=== PATIENT | female | born 1940 | race African-American/Black ===

== ENCOUNTER 2017-11-23 06:42 | Day surgery (SDC) | payer MEDICARE, MEDICAID ==
[~2017-11-23] VITALS: Ht 166.4 cm; Wt 105.7 kg
[~2017-11-23 06:42] MED LIST: AMLO1TAB39 PO; AMLO5TAB4 PO; ASPI-1158 PO; ATOR80TA PO; CALC-696 PO; CLOP75TA16 PO; COR3 PO; DOCU-138 PO; DONE10TA11 PO; ESOM40CA PO; FERR-63 PO; FURO-152 PO; GABA-529 PO; HYDR-1348 PO; HYDR-519 PO; ISOS60TA4 PO; LIP40 PO; MEMA10TA2 PO; MEMA1CAP MT; METF500T4 PO; MULT1TAB PO; NITR0.4T49 SL; OLME1TAB11 PO; OMEG-31 PO; POTA20TA12 PO; RANO500T3 PO
[2017-11-23] MEDS ORDERED: IODIXANOL 320MG/ML 100 ML BOTTLE IV ONE (07:58)
[2017-11-23] MEDS ORDERED: FENTANYL CITRATE/PF 50MCG/ML 2ML VIAL ONE (07:58)
[2017-11-23] MEDS ORDERED: MIDAZOLAM HCL 2 MG/2 ML VIAL ONE (07:58)
[2017-11-23] MEDS ORDERED: LIDOCAINE HCL/PF 1% 10 MG/ML 5ML VIAL ONE ×4 (07:59→09:29)
[2017-11-23] MEDS ORDERED: MEMA10TA2 PO (09:03)
[2017-11-23] MEDS ORDERED: MELO-104 PO (09:03)
[2017-11-23] MEDS ORDERED: CALCIUM PO (09:03)
[2017-11-23] MEDS ORDERED: OLME1TAB30 PO (09:03)
[2017-11-23] MEDS ORDERED: GARL400T13 PO (09:03)
[2017-11-23] MEDS ORDERED: TRIBENZOR PO (09:03)
[2017-11-23] MEDS ORDERED: RANI150C12 PO (09:03)
[2017-11-23] MEDS ORDERED: CYAN100096 PO (09:03)
[2017-11-23] MEDS ORDERED: EVOL420W SQ (09:03)
[2017-11-23] MEDS ORDERED: ATROPINE SULFATE 1MG/10ML SYR IV PRN (10:15)
[2017-11-23] MEDS ORDERED: ACETAMINOPHEN 325MG TABLET PO PRN (10:15)
[2017-11-23] MEDS ORDERED: ONDANSETRON HCL 4MG/2ML VIAL IV PRN (10:15)
[2017-11-23] MEDS ORDERED: NICARDIPINE 100MCG/ML 10ML VIAL (CATH LAB) IV ONE (14:41)
[2017-11-23] MEDS ORDERED: NITROGLYCERIN 50MCG/ML 10ML VIAL (CATH LAB) IV ONE (14:41)
== END 2017-11-23 15:15 | disposition home or self-care (01) ==
LOC: CCL 06:42
PROVIDERS: ATTEND Specialist
DX: I25.118 Atherosclerotic heart disease of native coronary artery with other forms of angina pectoris (principal); E78.4 Other hyperlipidemia; I11.0 Hypertensive heart disease with heart failure; I50.22 Chronic systolic (congestive) heart failure; E11.9 Type 2 diabetes mellitus without complications; Z79.4 Long term (current) use of insulin; Z95.1 Presence of aortocoronary bypass graft; Z79.899 Other long term (current) drug therapy; Z85.3 Personal history of malignant neoplasm of breast; Z95.5 Presence of coronary angioplasty implant and graft; I25.5 Ischemic cardiomyopathy; I47.1 Supraventricular tachycardia; I25.2 Old myocardial infarction; Z88.8 Allergy status to other drugs, medicaments and biological substances; Z79.82 Long term (current) use of aspirin
CPT/HCPCS: 82962; 93459; 99152; 99153; C1760; C1769; C1887; C1893; C1894; J1644; J2250; J3010; J3490; Q9967

== ENCOUNTER 2018-03-01 13:15 | Inpatient (IN) | payer MEDICARE, MEDICAID ==
[~2018-03-01] VITALS: Ht 165.1 cm; Wt 106.5 kg
[~2018-03-01 13:15] MED LIST changes: +CALCIUM PO; +CYAN100096 PO; +EVOL420W SQ; +GARL400T13 PO; +MELO-104 PO; -METF500T4 PO; +METF500T6 PO; +OLME1TAB30 PO; +RANI150C12 PO; +TRIBENZOR PO
[2018-03-01 15:00] VITALS: BP 147/71
[2018-03-01] MEDS ORDERED: NITROGLYCERIN 0.4MG TABLET SL SL PRN ×2 (15:00→16:00)
[2018-03-01] MEDS ORDERED: DEXTROSE 50% WATER 50ML SYRINGE IV PRN ×3 (15:00→16:00)
[2018-03-01] MEDS ORDERED: IPRATROPIUM/ALBUTEROL 0.5-3(2.5)MG/3ML NEB HHN PRN ×2 (15:00→16:00)
[2018-03-01] MEDS ORDERED: LOPERAMIDE HCL 2MG CAPSULE PO PRN ×2 (15:00→16:00)
[2018-03-01] MEDS ORDERED: ONDANSETRON HCL 4MG/2ML VIAL IV PRN ×2 (15:00→16:00)
[2018-03-01] MEDS ORDERED: DIPHENOXYLATE/ATROPINE 2.5/0.025MG TABLET PO PRN ×2 (15:00→16:00)
[2018-03-01] MEDS ORDERED: ACETAMINOPHEN 325MG TABLET PO PRN (15:00)
[2018-03-01] MEDS ORDERED: METHYL SALICYLATE/MENTHOL CREAM 85GM TOP PRN (15:00)
[2018-03-01] MEDS ORDERED: IPRATROPIUM/ALBUTEROL 0.5-3(2.5)MG/3ML NEB HHN SCH (16:00)
[2018-03-01] MEDS ORDERED: MEROPENEM 1,000 MG in SODIUM CHLORIDE 0.9% 100 ML IV SCH (17:00)
[2018-03-01] MEDS ORDERED: BLOOD SUGAR DIAGNOSTIC STRIP TEST SCH (17:00)
[2018-03-01] MEDS ORDERED: MEGESTROL ACETATE 400 MG/10 ML UDC PO SCH (17:00)
[2018-03-01] MEDS: INSULIN LISPRO 100 UNITS/ML SUBCUT SCH ×2 (17:00→21:00)
[2018-03-01] MEDS ORDERED: FERROUS SULFATE 325MG TABLET PO SCH (17:00)
[2018-03-01] MEDS: BLOOD SUGAR DIAGNOSTIC STRIP TEST SCH ×2 (17:00→21:37)
[2018-03-01] MEDS ORDERED: INSULIN LISPRO 100 UNITS/ML SUBCUT SCH (17:00)
[2018-03-01] MEDS: ACETAMINOPHEN 500MG TABLET PO SCH ×2 (18:00→18:48)
[2018-03-01] MEDS ORDERED: ACETAMINOPHEN 500MG TABLET PO SCH (18:00)
[2018-03-01] MEDS: FERROUS SULFATE 325MG TABLET PO SCH (18:47)
[2018-03-01] MEDS: MEGESTROL ACETATE 400 MG/10 ML UDC PO SCH (18:47)
[2018-03-01] MEDS: METHYL SALICYLATE/MENTHOL CREAM 85GM TOP SCH (18:53)
[2018-03-01 20:00] VITALS: BP 136/64
[2018-03-01] MEDS: MEROPENEM 1,000 MG in SODIUM CHLORIDE 0.9% 100 ML IV SCH (20:24)
[2018-03-01] MEDS ORDERED: ENOXAPARIN 30MG/0.3ML SYR SUBCUT SCH (21:00)
[2018-03-01] MEDS ORDERED: CARVEDILOL 3.125 MG TABLET PO SCH (21:00)
[2018-03-01] MEDS: GABAPENTIN 100MG CAPSULE PO SCH (21:36)
[2018-03-01] MEDS: CARVEDILOL 3.125 MG TABLET PO SCH (21:37)
[2018-03-01] MEDS: ENOXAPARIN 30MG/0.3ML SYR SUBCUT SCH (21:38)
[2018-03-01] MEDS ORDERED: GABAPENTIN 100MG CAPSULE PO SCH (22:00)
[2018-03-02] MEDS: ACETAMINOPHEN 325MG TABLET PO PRN (00:30)
[2018-03-02] MEDS: MEROPENEM 1,000 MG in SODIUM CHLORIDE 0.9% 100 ML IV SCH ×3 (04:58→19:31)
[2018-03-02] MEDS: METHYL SALICYLATE/MENTHOL CREAM 85GM TOP SCH ×5 (06:00→23:20)
[2018-03-02] MEDS: ACETAMINOPHEN 500MG TABLET PO SCH ×4 (06:45→19:31)
[2018-03-02] MEDS: BLOOD SUGAR DIAGNOSTIC STRIP TEST SCH ×4 (06:47→21:05)
[2018-03-02] MEDS: PANTOPRAZOLE 40MG DR TABLET PO SCH (06:47)
[2018-03-02] MEDS: INSULIN LISPRO 100 UNITS/ML SUBCUT SCH ×4 (06:47→21:00)
[2018-03-02] MEDS: GABAPENTIN 100MG CAPSULE PO SCH ×3 (06:47→21:05)
[2018-03-02] MEDS ORDERED: PANTOPRAZOLE 40MG DR TABLET PO SCH (07:00)
[2018-03-02 08:00] VITALS: BP 149/74
[2018-03-02 08:12] LABS: CHLORIDE 109 mEq/L (98-107)
[2018-03-02 08:14] LABS: HEMATOCRIT 27.7 % (36.0-48.0); MEAN CORPUSCULAR HEMOGLOBIN 28.3 pg (28.0-32.0); MEAN CORPUSCULAR VOLUME 87.2 fL (81.0-99.0); PLATELET 505 x1000/uL (130-400); RED BLOOD CELL COUNT 3.18 mill/uL (4.2-5.4); RED CELL DISTRIBUTION WIDTH 14.6 % (11.6-14.6)
[2018-03-02] MEDS ORDERED: AMLODIPINE 5MG TABLET PO SCH (09:00)
[2018-03-02] MEDS ORDERED: LIDOCAINE 5% PATCH TOP SCH (09:00)
[2018-03-02] MEDS ORDERED: LACTOBACILLUS GG CAPSULE PO SCH (09:00)
[2018-03-02] MEDS ORDERED: DONEPEZIL HCL 10MG TABLET PO SCH (09:00)
[2018-03-02] MEDS: MEGESTROL ACETATE 400 MG/10 ML UDC PO SCH ×2 (09:40→16:45)
[2018-03-02] MEDS: LIDOCAINE 5% PATCH TOP SCH (09:40)
[2018-03-02] MEDS: CARVEDILOL 3.125 MG TABLET PO SCH ×2 (09:41→20:48)
[2018-03-02] MEDS: LACTOBACILLUS GG CAPSULE PO SCH (09:41)
[2018-03-02] MEDS: FERROUS SULFATE 325MG TABLET PO SCH ×2 (09:41→16:45)
[2018-03-02] MEDS: DONEPEZIL HCL 10MG TABLET PO SCH (09:41)
[2018-03-02] MEDS: AMLODIPINE 5MG TABLET PO SCH (09:41)
[2018-03-02] MEDS: ENOXAPARIN 30MG/0.3ML SYR SUBCUT SCH ×2 (09:42→20:48)
[2018-03-02 18:25] LABS: CLARITY URINE CLEAR (CLEAR); COLOR URINE YELLOW (YELLOW); KETONES URINE NEGATIVE (NEGATIVE); LEUKOCYTE ESTERASE URINE NEGATIVE (NEGATIVE); NITRITE URINE NEGATIVE (NEGATIVE); OCCULT BLOOD URINE 2+ (NEGATIVE); PROTEIN URINE NEGATIVE (NEGATIVE); SPECIFIC GRAVITY URINE 1.005 (1.005-1.030); UROBILINOGEN URINE 0.2 E.U./dL (0.2-1.0)
[2018-03-02 20:00] VITALS: BP 136/87
[2018-03-03] MEDS: ACETAMINOPHEN 500MG TABLET PO SCH ×4 (00:29→18:39)
[2018-03-03] MEDS: MEROPENEM 1,000 MG in SODIUM CHLORIDE 0.9% 100 ML IV SCH ×3 (01:26→18:38)
[2018-03-03] MEDS: BLOOD SUGAR DIAGNOSTIC STRIP TEST SCH ×4 (06:24→20:30)
[2018-03-03] MEDS: PANTOPRAZOLE 40MG DR TABLET PO SCH (06:26)
[2018-03-03] MEDS: GABAPENTIN 100MG CAPSULE PO SCH ×3 (06:26→21:18)
[2018-03-03] MEDS: METHYL SALICYLATE/MENTHOL CREAM 85GM TOP SCH ×3 (06:27→18:00)
[2018-03-03] MEDS: INSULIN LISPRO 100 UNITS/ML SUBCUT SCH ×4 (06:49→20:30)
[2018-03-03 07:10] LABS: HEMATOCRIT. 27.6 % (36.0-48.0); HEMOGLOBIN. 8.8 g/dL (12.0-16.0); MEAN CORPUSCULAR HEMOGLOBIN 27.8 pg (28.0-32.0); MEAN PLATELET VOLUME 6.7 fl (7.4-10.4); PLATELET 488 x1000/uL (130-400); RED BLOOD CELL COUNT 3.17 mill/uL (4.2-5.4); RED CELL DISTRIBUTION WIDTH 15.1 % (11.6-14.6)
[2018-03-03 07:24] LABS: CHLORIDE 108 mEq/L (98-107)
[2018-03-03 07:31] LABS: TOTAL IRON BINDING CAPACITY 163 ug/dL (250-450)
[2018-03-03 07:50] VITALS: BP 148/74
[2018-03-03 07:52] LABS: FOLIC ACID (FOLATE) SERUM >20 ng/mL ng/mL (>5.38)
[2018-03-03 08:05] LABS: VITAMIN B12 SERUM >2000 pg/mL pg/mL (211-911)
[2018-03-03] MEDS: MEGESTROL ACETATE 400 MG/10 ML UDC PO SCH ×2 (08:10→16:30)
[2018-03-03] MEDS: LACTOBACILLUS GG CAPSULE PO SCH (08:11)
[2018-03-03] MEDS: DONEPEZIL HCL 10MG TABLET PO SCH (08:11)
[2018-03-03] MEDS: FERROUS SULFATE 325MG TABLET PO SCH ×2 (08:11→16:30)
[2018-03-03] MEDS: ENOXAPARIN 30MG/0.3ML SYR SUBCUT SCH (08:11)
[2018-03-03] MEDS: CARVEDILOL 3.125 MG TABLET PO SCH ×2 (08:12→20:29)
[2018-03-03] MEDS: AMLODIPINE 5MG TABLET PO SCH (08:12)
[2018-03-03] MEDS: LIDOCAINE 5% PATCH TOP SCH (08:13)
[2018-03-03 08:44] LABS: PLATELET ESTIMATE INCREASED
[2018-03-03 09:27] LABS: FERRITIN 649 ng/mL (10-291)
[2018-03-03 20:00] VITALS: BP 146/74
[2018-03-04] MEDS: MEROPENEM 1,000 MG in SODIUM CHLORIDE 0.9% 100 ML IV SCH ×3 (02:02→17:14)
[2018-03-04] MEDS: METHYL SALICYLATE/MENTHOL CREAM 85GM TOP SCH ×4 (06:00→17:47)
[2018-03-04] MEDS: GABAPENTIN 100MG CAPSULE PO SCH ×3 (06:15→22:24)
[2018-03-04] MEDS: ACETAMINOPHEN 500MG TABLET PO SCH ×4 (06:15→17:16)
[2018-03-04] MEDS: BLOOD SUGAR DIAGNOSTIC STRIP TEST SCH ×4 (06:16→21:00)
[2018-03-04] MEDS: INSULIN LISPRO 100 UNITS/ML SUBCUT SCH ×4 (06:16→21:00)
[2018-03-04 08:00] VITALS: BP 150/69
[2018-03-04] MEDS: FAMOTIDINE 20MG TABLET PO SCH ×2 (09:46→22:24)
[2018-03-04] MEDS: FERROUS SULFATE 325MG TABLET PO SCH ×2 (09:46→17:14)
[2018-03-04] MEDS: ENOXAPARIN 40MG/0.4ML SYR SUBCUT SCH (09:46)
[2018-03-04] MEDS: LACTOBACILLUS GG CAPSULE PO SCH (09:46)
[2018-03-04] MEDS: MEGESTROL ACETATE 400 MG/10 ML UDC PO SCH ×2 (09:46→17:14)
[2018-03-04] MEDS: DONEPEZIL HCL 10MG TABLET PO SCH (09:47)
[2018-03-04] MEDS: CARVEDILOL 3.125 MG TABLET PO SCH ×2 (09:47→22:25)
[2018-03-04] MEDS: AMLODIPINE 5MG TABLET PO SCH (09:47)
[2018-03-04] MEDS: LIDOCAINE 5% PATCH TOP SCH (09:48)
[2018-03-04 20:00] VITALS: BP 154/69
[2018-03-05] MEDS: ACETAMINOPHEN 500MG TABLET PO SCH ×4 (00:41→17:32)
[2018-03-05] MEDS: MEROPENEM 1,000 MG in SODIUM CHLORIDE 0.9% 100 ML IV SCH ×3 (01:44→17:32)
[2018-03-05] MEDS: METHYL SALICYLATE/MENTHOL CREAM 85GM TOP SCH ×4 (06:00→17:32)
[2018-03-05] MEDS: GABAPENTIN 100MG CAPSULE PO SCH ×3 (06:22→21:37)
[2018-03-05] MEDS: BLOOD SUGAR DIAGNOSTIC STRIP TEST SCH ×4 (06:23→21:38)
[2018-03-05] MEDS: INSULIN LISPRO 100 UNITS/ML SUBCUT SCH ×4 (06:26→21:00)
[2018-03-05 06:56] LABS: BASOPHILS % 0.1 % (0.0-2.0); EOSINOPHILS % 2.1 % (0.0-5.0); HEMATOCRIT. 27.3 % (36.0-48.0); LYMPHOCYTES % 24.8 % (20.0-50.0); MEAN CORPUSCULAR HEMOGLOBIN 29.2 pg (28.0-32.0); MEAN PLATELET VOLUME 6.5 fl (7.4-10.4); MONOCYTES % 10.1 % (2.0-8.0); NEUTROPHILS % 62.9 % (40.0-76.0); PLATELET 549 x1000/uL (130-400); RED CELL DISTRIBUTION WIDTH 15.3 % (11.6-14.6)
[2018-03-05 07:17] LABS: CHLORIDE 110 mEq/L (98-107)
[2018-03-05 08:00] VITALS: BP 157/73
[2018-03-05] MEDS: MEGESTROL ACETATE 400 MG/10 ML UDC PO SCH ×2 (09:26→16:13)
[2018-03-05] MEDS: ENOXAPARIN 40MG/0.4ML SYR SUBCUT SCH (09:27)
[2018-03-05] MEDS: AMLODIPINE 5MG TABLET PO SCH (09:28)
[2018-03-05] MEDS: FAMOTIDINE 20MG TABLET PO SCH ×2 (09:28→21:37)
[2018-03-05] MEDS: DONEPEZIL HCL 10MG TABLET PO SCH (09:28)
[2018-03-05] MEDS: LACTOBACILLUS GG CAPSULE PO SCH (09:29)
[2018-03-05] MEDS: FERROUS SULFATE 325MG TABLET PO SCH ×2 (09:29→16:13)
[2018-03-05] MEDS: CARVEDILOL 3.125 MG TABLET PO SCH ×2 (09:30→21:38)
[2018-03-05] MEDS: LIDOCAINE 5% PATCH TOP SCH (09:31)
[2018-03-05] MEDS ORDERED: NON FORMULARY PATIENT HOME MED EA XX SCH (12:30)
[2018-03-05 20:00] VITALS: BP 131/70
[2018-03-06] MEDS: MEROPENEM 1,000 MG in SODIUM CHLORIDE 0.9% 100 ML IV SCH ×3 (02:08→17:09)
[2018-03-06] MEDS: METHYL SALICYLATE/MENTHOL CREAM 85GM TOP SCH ×4 (06:00→18:00)
[2018-03-06] MEDS: BLOOD SUGAR DIAGNOSTIC STRIP TEST SCH ×4 (06:01→20:59)
[2018-03-06] MEDS: ACETAMINOPHEN 500MG TABLET PO SCH ×4 (06:01→17:10)
[2018-03-06] MEDS: GABAPENTIN 100MG CAPSULE PO SCH ×3 (06:01→20:59)
[2018-03-06] MEDS: INSULIN LISPRO 100 UNITS/ML SUBCUT SCH ×4 (06:03→21:00)
[2018-03-06 06:45] LABS: BASOPHILS % 0.1 % (0.0-2.0); EOSINOPHILS % 1.9 % (0.0-5.0); HEMATOCRIT. 29.6 % (36.0-48.0); HEMOGLOBIN. 9.5 g/dL (12.0-16.0); LYMPHOCYTES % 28.1 % (20.0-50.0); MEAN CORPUSCULAR HEMOGLOBIN 27.9 pg (28.0-32.0); MEAN CORPUSCULAR VOLUME 87.2 fL (81.0-99.0); MEAN PLATELET VOLUME 6.3 fl (7.4-10.4); MONOCYTES % 9.2 % (2.0-8.0); NEUTROPHILS % 60.7 % (40.0-76.0); PLATELET 622 x1000/uL (130-400); RED BLOOD CELL COUNT 3.39 mill/uL (4.2-5.4)
[2018-03-06 07:42] LABS: CLARITY URINE CLEAR (CLEAR); COLOR URINE YELLOW (YELLOW); KETONES URINE NEGATIVE (NEGATIVE); LEUKOCYTE ESTERASE URINE NEGATIVE (NEGATIVE); NITRITE URINE NEGATIVE (NEGATIVE); OCCULT BLOOD URINE NEGATIVE (NEGATIVE); PH URINE 7.5 (4.5-8.0); PROTEIN URINE NEGATIVE (NEGATIVE); SPECIFIC GRAVITY URINE 1.011 (1.005-1.030); UROBILINOGEN URINE 0.2 E.U./dL (0.2-1.0)
[2018-03-06 07:50] VITALS: BP 142/65
[2018-03-06 07:52] LABS: CHLORIDE 110 mEq/L (98-107)
[2018-03-06] MEDS: MEGESTROL ACETATE 400 MG/10 ML UDC PO SCH ×2 (09:13→16:19)
[2018-03-06] MEDS: ENOXAPARIN 40MG/0.4ML SYR SUBCUT SCH (09:14)
[2018-03-06] MEDS: LACTOBACILLUS GG CAPSULE PO SCH (09:16)
[2018-03-06] MEDS: LIDOCAINE 5% PATCH TOP SCH (09:16)
[2018-03-06] MEDS: FERROUS SULFATE 325MG TABLET PO SCH ×2 (09:16→16:19)
[2018-03-06] MEDS: FAMOTIDINE 20MG TABLET PO SCH ×2 (09:17→20:59)
[2018-03-06] MEDS: AMLODIPINE 5MG TABLET PO SCH (09:17)
[2018-03-06] MEDS: DONEPEZIL HCL 10MG TABLET PO SCH (09:17)
[2018-03-06] MEDS: CARVEDILOL 3.125 MG TABLET PO SCH ×2 (09:18→20:59)
[2018-03-06] MEDS: ACETAMINOPHEN 325MG TABLET PO PRN (10:23)
[2018-03-06 20:00] VITALS: BP 143/62
[2018-03-07] MEDS: MEROPENEM 1,000 MG in SODIUM CHLORIDE 0.9% 100 ML IV SCH ×3 (02:06→17:07)
[2018-03-07] MEDS: ACETAMINOPHEN 500MG TABLET PO SCH ×4 (05:47→17:07)
[2018-03-07] MEDS: GABAPENTIN 100MG CAPSULE PO SCH ×3 (05:47→21:20)
[2018-03-07] MEDS: BLOOD SUGAR DIAGNOSTIC STRIP TEST SCH ×4 (05:49→21:20)
[2018-03-07] MEDS: METHYL SALICYLATE/MENTHOL CREAM 85GM TOP SCH ×4 (05:49→17:26)
[2018-03-07] MEDS: INSULIN LISPRO 100 UNITS/ML SUBCUT SCH ×4 (05:49→21:00)
[2018-03-07 07:11] LABS: CHLORIDE 111 mEq/L (98-107)
[2018-03-07 07:26] LABS: BASOPHILS % 0.2 % (0.0-2.0); EOSINOPHILS % 1.6 % (0.0-5.0); HEMATOCRIT. 27.3 % (36.0-48.0); HEMOGLOBIN. 8.9 g/dL (12.0-16.0); LYMPHOCYTES % 26.1 % (20.0-50.0); MEAN CORPUSCULAR HEMOGLOBIN 28.8 pg (28.0-32.0); MEAN CORPUSCULAR VOLUME 88.1 fL (81.0-99.0); MEAN PLATELET VOLUME 6.5 fl (7.4-10.4); MONOCYTES % 12.4 % (2.0-8.0); NEUTROPHILS % 59.7 % (40.0-76.0); PLATELET 601 x1000/uL (130-400); RED CELL DISTRIBUTION WIDTH 15.2 % (11.6-14.6)
[2018-03-07 07:45] VITALS: BP 150/72
[2018-03-07] MEDS: LIDOCAINE 5% PATCH TOP SCH (09:00)
[2018-03-07] MEDS: ENOXAPARIN 40MG/0.4ML SYR SUBCUT SCH (09:05)
[2018-03-07] MEDS: CARVEDILOL 3.125 MG TABLET PO SCH ×2 (09:05→21:20)
[2018-03-07] MEDS: LACTOBACILLUS GG CAPSULE PO SCH (09:05)
[2018-03-07] MEDS: FAMOTIDINE 20MG TABLET PO SCH ×2 (09:05→21:20)
[2018-03-07] MEDS: FERROUS SULFATE 325MG TABLET PO SCH ×2 (09:05→17:07)
[2018-03-07] MEDS: DONEPEZIL HCL 10MG TABLET PO SCH (09:05)
[2018-03-07] MEDS: AMLODIPINE 5MG TABLET PO SCH (09:05)
[2018-03-07] MEDS: MEGESTROL ACETATE 400 MG/10 ML UDC PO SCH ×2 (09:05→17:07)
[2018-03-07 20:00] VITALS: BP 151/69
[2018-03-08] MEDS: MEROPENEM 1,000 MG in SODIUM CHLORIDE 0.9% 100 ML IV SCH ×3 (01:31→17:23)
[2018-03-08] MEDS: GABAPENTIN 100MG CAPSULE PO SCH ×3 (05:58→21:49)
[2018-03-08] MEDS: ACETAMINOPHEN 500MG TABLET PO SCH ×4 (05:58→20:53)
[2018-03-08] MEDS: METHYL SALICYLATE/MENTHOL CREAM 85GM TOP SCH ×4 (05:58→17:44)
[2018-03-08] MEDS: BLOOD SUGAR DIAGNOSTIC STRIP TEST SCH ×4 (05:58→20:58)
[2018-03-08] MEDS: INSULIN LISPRO 100 UNITS/ML SUBCUT SCH ×4 (06:03→20:58)
[2018-03-08 07:40] VITALS: BP 152/67
[2018-03-08] MEDS: FERROUS SULFATE 325MG TABLET PO SCH ×2 (08:22→17:23)
[2018-03-08] MEDS: ENOXAPARIN 40MG/0.4ML SYR SUBCUT SCH (08:22)
[2018-03-08] MEDS: LACTOBACILLUS GG CAPSULE PO SCH (08:22)
[2018-03-08] MEDS: FAMOTIDINE 20MG TABLET PO SCH ×2 (08:22→21:52)
[2018-03-08] MEDS: DONEPEZIL HCL 10MG TABLET PO SCH (08:22)
[2018-03-08] MEDS: CARVEDILOL 3.125 MG TABLET PO SCH ×2 (08:23→21:51)
[2018-03-08] MEDS: LIDOCAINE 5% PATCH TOP SCH (08:23)
[2018-03-08] MEDS: AMLODIPINE 5MG TABLET PO SCH (08:23)
[2018-03-08] MEDS: MEGESTROL ACETATE 400 MG/10 ML UDC PO SCH ×2 (08:24→17:23)
[2018-03-08 20:00] VITALS: BP 143/52
[2018-03-09] MEDS: ACETAMINOPHEN 500MG TABLET PO SCH ×4 (02:11→21:23)
[2018-03-09] MEDS: GABAPENTIN 100MG CAPSULE PO SCH ×3 (05:53→21:22)
[2018-03-09] MEDS: METHYL SALICYLATE/MENTHOL CREAM 85GM TOP SCH ×4 (05:53→17:27)
[2018-03-09] MEDS: INSULIN LISPRO 100 UNITS/ML SUBCUT SCH ×4 (05:54→21:00)
[2018-03-09] MEDS: BLOOD SUGAR DIAGNOSTIC STRIP TEST SCH ×4 (05:54→21:24)
[2018-03-09 07:25] LABS: BASOPHILS % 0.4 % (0.0-2.0); EOSINOPHILS % 1.4 % (0.0-5.0); HEMATOCRIT. 28.9 % (36.0-48.0); HEMOGLOBIN. 9.3 g/dL (12.0-16.0); LYMPHOCYTES % 26.5 % (20.0-50.0); MEAN CORPUSCULAR HEMOGLOBIN 28.7 pg (28.0-32.0); MEAN CORPUSCULAR VOLUME 89.2 fL (81.0-99.0); MONOCYTES % 9.1 % (2.0-8.0); NEUTROPHILS % 62.6 % (40.0-76.0); PLATELET 678 x1000/uL (130-400); RED BLOOD CELL COUNT 3.24 mill/uL (4.2-5.4); RED CELL DISTRIBUTION WIDTH 15.8 % (11.6-14.6)
[2018-03-09 07:30] VITALS: BP 149/65
[2018-03-09 08:01] LABS: CHLORIDE 113 mEq/L (98-107)
[2018-03-09 08:14] LABS: CREATINE KINASE 42 IU/L (26-192)
[2018-03-09] MEDS: ENOXAPARIN 40MG/0.4ML SYR SUBCUT SCH (08:21)
[2018-03-09] MEDS: LIDOCAINE 5% PATCH TOP SCH (08:22)
[2018-03-09] MEDS: MEGESTROL ACETATE 400 MG/10 ML UDC PO SCH ×2 (08:23→16:36)
[2018-03-09] MEDS: FERROUS SULFATE 325MG TABLET PO SCH ×2 (08:24→16:36)
[2018-03-09] MEDS: LACTOBACILLUS GG CAPSULE PO SCH (08:24)
[2018-03-09] MEDS: DONEPEZIL HCL 10MG TABLET PO SCH (08:25)
[2018-03-09] MEDS: AMLODIPINE 5MG TABLET PO SCH (08:25)
[2018-03-09] MEDS: CARVEDILOL 3.125 MG TABLET PO SCH ×2 (08:25→21:22)
[2018-03-09] MEDS: FAMOTIDINE 20MG TABLET PO SCH ×2 (08:26→21:22)
[2018-03-09 17:06] LABS: 25-HYDROXY VITAMIN D3 25 ng/mL (.)
[2018-03-09 20:00] VITALS: BP 156/53
[2018-03-10] MEDS: ACETAMINOPHEN 500MG TABLET PO SCH ×2 (01:29→08:43)
[2018-03-10] MEDS: METHYL SALICYLATE/MENTHOL CREAM 85GM TOP SCH ×3 (06:00→11:08)
[2018-03-10] MEDS: BLOOD SUGAR DIAGNOSTIC STRIP TEST SCH ×2 (06:05→11:07)
[2018-03-10] MEDS: GABAPENTIN 100MG CAPSULE PO SCH (06:05)
[2018-03-10 07:18] LABS: BASOPHILS % 0.4 % (0.0-2.0); EOSINOPHILS % 1.4 % (0.0-5.0); LYMPHOCYTES % 25.9 % (20.0-50.0); MEAN CORPUSCULAR HEMOGLOBIN 29.7 pg (28.0-32.0); MEAN PLATELET VOLUME 6.5 fl (7.4-10.4); MONOCYTES % 9.2 % (2.0-8.0); NEUTROPHILS % 63.1 % (40.0-76.0); PLATELET 655 x1000/uL (130-400); RED BLOOD CELL COUNT 3.03 mill/uL (4.2-5.4); RED CELL DISTRIBUTION WIDTH 15.7 % (11.6-14.6)
[2018-03-10 07:41] LABS: CHLORIDE 112 mEq/L (98-107)
[2018-03-10 08:00] VITALS: BP 155/68
[2018-03-10] MEDS: ENOXAPARIN 40MG/0.4ML SYR SUBCUT SCH (08:41)
[2018-03-10] MEDS: CARVEDILOL 3.125 MG TABLET PO SCH (08:42)
[2018-03-10] MEDS: MEGESTROL ACETATE 400 MG/10 ML UDC PO SCH (08:42)
[2018-03-10] MEDS: FAMOTIDINE 20MG TABLET PO SCH (08:42)
[2018-03-10] MEDS: LACTOBACILLUS GG CAPSULE PO SCH (08:43)
[2018-03-10] MEDS: AMLODIPINE 5MG TABLET PO SCH (08:43)
[2018-03-10] MEDS: FERROUS SULFATE 325MG TABLET PO SCH (08:43)
[2018-03-10] MEDS: DONEPEZIL HCL 10MG TABLET PO SCH (08:43)
[2018-03-10] MEDS: INSULIN LISPRO 100 UNITS/ML SUBCUT SCH ×2 (08:44→12:46)
[2018-03-10] MEDS: LIDOCAINE 5% PATCH TOP SCH (09:16)
[2018-03-10 12:04] VITALS: BP 130/65
== END 2018-03-10 12:45 | disposition home health service (06) | DRG 557 ==
PROVIDERS: ADMIT Physical Medicine & Rehabilitation Spinal Cord Injury Medicine; ATTEND Specialist
DX: M62.82 Rhabdomyolysis (principal); A41.59 Other Gram-negative sepsis; N17.0 Acute kidney failure with tubular necrosis; A04.5 Campylobacter enteritis; E87.1 Hypo-osmolality and hyponatremia; N39.0 Urinary tract infection, site not specified; A04.8 Other specified bacterial intestinal infections; I50.42 Chronic combined systolic (congestive) and diastolic (congestive) heart failure; E66.2 Morbid (severe) obesity with alveolar hypoventilation; S80.01XA Contusion of right knee, initial encounter; R19.5 Other fecal abnormalities; E87.6 Hypokalemia; M25.562 Pain in left knee; F03.90 Unspecified dementia, unspecified severity, without behavioral disturbance, psychotic disturbance, mood disturbance, and anxiety; I25.10 Atherosclerotic heart disease of native coronary artery without angina pectoris; R53.81 Other malaise; R26.9 Unspecified abnormalities of gait and mobility; D64.9 Anemia, unspecified; M75.00 Adhesive capsulitis of unspecified shoulder; E86.9 Volume depletion, unspecified; E78.5 Hyperlipidemia, unspecified; I11.0 Hypertensive heart disease with heart failure; I48.0 Paroxysmal atrial fibrillation; R63.0 Anorexia; E11.51 Type 2 diabetes mellitus with diabetic peripheral angiopathy without gangrene; B96.1 Klebsiella pneumoniae [K. pneumoniae] as the cause of diseases classified elsewhere; F39 Unspecified mood [affective] disorder; F32.9 Major depressive disorder, single episode, unspecified; M17.11 Unilateral primary osteoarthritis, right knee; R32 Unspecified urinary incontinence; W06.XXXA Fall from bed, initial encounter; I25.5 Ischemic cardiomyopathy; Z95.1 Presence of aortocoronary bypass graft; Z85.3 Personal history of malignant neoplasm of breast; Z88.8 Allergy status to other drugs, medicaments and biological substances; Z79.899 Other long term (current) drug therapy; Z79.4 Long term (current) use of insulin; Z79.51 Long term (current) use of inhaled steroids; Z79.84 Long term (current) use of oral hypoglycemic drugs; Y93.89 Activity, other specified; Y92.89 Other specified places as the place of occurrence of the external cause; Y99.8 Other external cause status; Z98.61 Coronary angioplasty status; Z87.891 Personal history of nicotine dependence; Z68.39 Body mass index [BMI] 39.0-39.9, adult
CPT/HCPCS: 36415; 73700; 80048; 80053; 81003; 82306; 82550; 82607; 82728; 82746; 82962; 83540; 83550; 83735; 84100; 84134; 84443; 84630; 85025; 85027; 87086; 92523; 93970; 97110; 97116; 97150; 97162; 97167; 97530; 97535; A6261; C1893; G0515; J1650; J2185; J7040; J7050

== ENCOUNTER 2018-11-09 12:13 | Inpatient (IN) | payer MEDICARE, MEDICAID ==
[~2018-11-09] VITALS: Ht 195.6 cm; Wt 102.1 kg
[~2018-11-09 12:13] MED LIST changes: +METF-414 PO; -METF500T6 PO
[2018-11-09] MEDS ORDERED: SODIUM CHLORIDE 0.9% 1,000 ML IV ONE (13:26)
[2018-11-09] MEDS ORDERED: MORPHINE SULFATE 4 MG/ML CPJ (NOT FOR IM USE) IV STA (13:26)
[2018-11-09] MEDS ORDERED: ONDANSETRON HCL 4MG/2ML INJ IV STA (13:26)
[2018-11-09 13:52] LABS: BASOPHILS % 1.1 % (0.0-2.0); EOSINOPHILS % 1.6 % (0.0-5.0); HEMOGLOBIN. 10.3 g/dL (12.0-16.0); MEAN CORPUSCULAR HEMOGLOBIN 26.6 pg (28.0-32.0); MEAN CORPUSCULAR VOLUME 85.7 fL (81.0-99.0); MEAN PLATELET VOLUME 6.8 fl (7.4-10.4); MONOCYTES % 8.8 % (2.0-8.0); NEUTROPHILS % 65.5 % (40.0-76.0); PLATELET 366 x1000/uL (130-400); RED BLOOD CELL COUNT 3.85 mill/uL (4.2-5.4); RED CELL DISTRIBUTION WIDTH 17.4 % (11.6-14.6)
[2018-11-09 13:59] LABS: CHLORIDE 108 mEq/L (98-107)
[2018-11-09 14:02] LABS: INR 1.2; PARTIAL THROMBOPLASTIN TIME 24.3 sec (23.4-31.0)
[2018-11-09 15:44] LABS: CLARITY URINE CLEAR (CLEAR); COLOR URINE YELLOW (YELLOW); KETONES URINE TRACE (NEGATIVE); LEUKOCYTE ESTERASE URINE 1+ (NEGATIVE); NITRITE URINE NEGATIVE (NEGATIVE); OCCULT BLOOD URINE NEGATIVE (NEGATIVE); PROTEIN URINE 1+ (NEGATIVE)
[2018-11-09] MEDS ORDERED: CEFTRIAXONE 1 G PREMIX 50 ML IV ONE (16:45)
[2018-11-09] MEDS ORDERED: ASPIRIN 325MG EC TABLET PO ONE (16:45)
[2018-11-09] MEDS ORDERED: ENOXAPARIN 100MG/ML SYR SUBCUT ONE (17:30)
[2018-11-09] MEDS ORDERED: ONDANSETRON HCL 4MG/2ML INJ IV PRN (18:00)
[2018-11-09] MEDS ORDERED: CEFTRIAXONE 1 G PREMIX 50 ML IV SCH (18:00)
[2018-11-09] MEDS: DOCUSATE SODIUM 250MG CAPSULE PO SCH (19:05)
[2018-11-09] MEDS ORDERED: LACTULOSE 20G/30ML UDC PO PRN (21:00)
[2018-11-09 21:43] VITALS: BP 146/79
[2018-11-09 21:51] VITALS: BP 146/79
[2018-11-09] MEDS: MEMANTINE HCL 10MG TABLET PO SCH (22:54)
[2018-11-09] MEDS: NITROGLYCERIN OINT 1GM/INCH UDPKT TD SCH (22:54)
[2018-11-09 23:52] VITALS: BP 149/76
[2018-11-10 04:00] VITALS: BP 152/92
[2018-11-10] MEDS: NITROGLYCERIN OINT 1GM/INCH UDPKT TD SCH ×3 (05:40→21:00)
[2018-11-10] MEDS ORDERED: DEXTROSE 50% WATER 50ML SYRINGE IV PRN (06:15)
[2018-11-10] MEDS: OMEPRAZOLE 20MG CAPSULE EXTENDED RELEASE PO SCH (06:31)
[2018-11-10] MEDS: BLOOD SUGAR DIAGNOSTIC STRIP TEST SCH ×4 (06:31→20:53)
[2018-11-10 06:51] LABS: BASOPHILS % 0.2 % (0.0-2.0); EOSINOPHILS % 1.9 % (0.0-5.0); HEMATOCRIT. 31.6 % (36.0-48.0); HEMOGLOBIN. 9.9 g/dL (12.0-16.0); LYMPHOCYTES % 25.6 % (20.0-50.0); MEAN CORPUSCULAR HEMOGLOBIN 26.8 pg (28.0-32.0); MEAN CORPUSCULAR VOLUME 85.5 fL (81.0-99.0); MEAN PLATELET VOLUME 7.1 fl (7.4-10.4); MONOCYTES % 10.8 % (2.0-8.0); NEUTROPHILS % 61.5 % (40.0-76.0); PLATELET 343 x1000/uL (130-400); RED BLOOD CELL COUNT 3.69 mill/uL (4.2-5.4); RED CELL DISTRIBUTION WIDTH 16.7 % (11.6-14.6)
[2018-11-10 07:41] LABS: CHLORIDE 108 mEq/L (98-107)
[2018-11-10] MEDS: INSULIN LISPRO 100 UNITS/ML SUBCUT SCH ×4 (07:50→21:00)
[2018-11-10 08:21] VITALS: BP 133/83
[2018-11-10] MEDS: DONEPEZIL HCL 10MG TABLET PO SCH (09:06)
[2018-11-10] MEDS: DOCUSATE SODIUM 250MG CAPSULE PO SCH (09:06)
[2018-11-10] MEDS: AMLODIPINE 5MG TABLET PO SCH (09:06)
[2018-11-10] MEDS: CLOPIDOGREL 75MG TABLET PO SCH (09:06)
[2018-11-10] MEDS: ASPIRIN 81MG TABLET PO SCH (09:06)
[2018-11-10] MEDS: MEMANTINE HCL 10MG TABLET PO SCH ×2 (09:06→20:53)
[2018-11-10] MEDS: FUROSEMIDE 40MG/4ML VIAL IVP SCH (09:07)
[2018-11-10] MEDS: ENOXAPARIN 30MG/0.3ML SYR SUBCUT SCH ×2 (09:08→20:51)
[2018-11-10] MEDS ORDERED: LACTULOSE 20G/30ML UDC PO SCH (11:30)
[2018-11-10 12:18] VITALS: BP 103/70
[2018-11-10] MEDS ORDERED: IPRATROPIUM/ALBUTEROL 0.5-3(2.5)MG/3ML NEB HHN PRN (14:30)
[2018-11-10 16:00] VITALS: BP 145/76
[2018-11-10] MEDS: CEFTRIAXONE 1 G PREMIX 50 ML IV SCH (17:43)
[2018-11-10 20:00] VITALS: BP 151/85
[2018-11-10] MEDS: ACETAMINOPHEN 325MG TABLET PO PRN (20:53)
[2018-11-11] VITALS: BP 138/69
[2018-11-11 04:00] VITALS: BP 146/75
[2018-11-11] MEDS: NITROGLYCERIN OINT 1GM/INCH UDPKT TD SCH ×3 (05:47→21:02)
[2018-11-11] MEDS: BLOOD SUGAR DIAGNOSTIC STRIP TEST SCH ×4 (06:20→20:53)
[2018-11-11] MEDS: OMEPRAZOLE 20MG CAPSULE EXTENDED RELEASE PO SCH (06:20)
[2018-11-11 06:40] LABS: BASOPHILS % 0.2 % (0.0-2.0); EOSINOPHILS % 2.3 % (0.0-5.0); LYMPHOCYTES % 22.8 % (20.0-50.0); MEAN CORPUSCULAR HEMOGLOBIN 26.7 pg (28.0-32.0); MEAN CORPUSCULAR VOLUME 85.5 fL (81.0-99.0); MEAN PLATELET VOLUME 7.1 fl (7.4-10.4); MONOCYTES % 10.1 % (2.0-8.0); NEUTROPHILS % 64.6 % (40.0-76.0); PLATELET 370 x1000/uL (130-400); RED BLOOD CELL COUNT 3.74 mill/uL (4.2-5.4); RED CELL DISTRIBUTION WIDTH 17.4 % (11.6-14.6)
[2018-11-11] MEDS: INSULIN LISPRO 100 UNITS/ML SUBCUT SCH ×4 (07:50→21:00)
[2018-11-11 07:54] LABS: CHLORIDE 108 mEq/L (98-107)
[2018-11-11 08:00] VITALS: BP 153/84
[2018-11-11] MEDS: FUROSEMIDE 40MG/4ML VIAL IVP SCH ×2 (09:30→16:58)
[2018-11-11] MEDS: ASPIRIN 81MG TABLET PO SCH (09:30)
[2018-11-11] MEDS: CLOPIDOGREL 75MG TABLET PO SCH (09:30)
[2018-11-11] MEDS: MEMANTINE HCL 10MG TABLET PO SCH ×2 (09:31→20:53)
[2018-11-11] MEDS: AMLODIPINE 5MG TABLET PO SCH (09:31)
[2018-11-11] MEDS: DOCUSATE SODIUM 250MG CAPSULE PO SCH (09:31)
[2018-11-11] MEDS: DONEPEZIL HCL 10MG TABLET PO SCH (09:31)
[2018-11-11] MEDS: ENOXAPARIN 30MG/0.3ML SYR SUBCUT SCH ×2 (09:32→20:53)
[2018-11-11 12:00] VITALS: BP 127/72
[2018-11-11] MEDS ORDERED: POTASSIUM CHLORIDE 20MEQ TABLET SR PO SCH (14:00)
[2018-11-11 16:00] VITALS: BP 135/80
[2018-11-11] MEDS: CEFTRIAXONE 1 G PREMIX 50 ML IV SCH (17:00)
[2018-11-11 20:42] VITALS: BP 133/70
[2018-11-11] MEDS: ACETAMINOPHEN 325MG TABLET PO PRN (20:54)
[2018-11-12 00:44] VITALS: BP 144/77
[2018-11-12 04:08] VITALS: BP 148/72
[2018-11-12] MEDS: NITROGLYCERIN OINT 1GM/INCH UDPKT TD SCH ×2 (05:10→14:00)
[2018-11-12] MEDS: OMEPRAZOLE 20MG CAPSULE EXTENDED RELEASE PO SCH (06:27)
[2018-11-12] MEDS: BLOOD SUGAR DIAGNOSTIC STRIP TEST SCH ×2 (06:27→12:14)
[2018-11-12 06:47] LABS: CHLORIDE 106 mEq/L (98-107)
[2018-11-12 06:48] LABS: BASOPHILS % 0.3 % (0.0-2.0); EOSINOPHILS % 2.7 % (0.0-5.0); HEMATOCRIT. 31.2 % (36.0-48.0); HEMOGLOBIN. 9.9 g/dL (12.0-16.0); LYMPHOCYTES % 23.3 % (20.0-50.0); MEAN CORPUSCULAR HEMOGLOBIN 26.8 pg (28.0-32.0); MEAN CORPUSCULAR VOLUME 84.3 fL (81.0-99.0); MONOCYTES % 10.6 % (2.0-8.0); NEUTROPHILS % 63.1 % (40.0-76.0); PLATELET 382 x1000/uL (130-400); RED CELL DISTRIBUTION WIDTH 17.1 % (11.6-14.6)
[2018-11-12] MEDS: INSULIN LISPRO 100 UNITS/ML SUBCUT SCH ×2 (07:40→12:14)
[2018-11-12 08:42] VITALS: BP 133/74
[2018-11-12] MEDS: MEMANTINE HCL 10MG TABLET PO SCH (08:55)
[2018-11-12] MEDS: DONEPEZIL HCL 10MG TABLET PO SCH (08:55)
[2018-11-12] MEDS: AMLODIPINE 5MG TABLET PO SCH (08:57)
[2018-11-12] MEDS: DOCUSATE SODIUM 250MG CAPSULE PO SCH (08:57)
[2018-11-12] MEDS: ENOXAPARIN 30MG/0.3ML SYR SUBCUT SCH (08:58)
[2018-11-12] MEDS: FUROSEMIDE 40MG/4ML VIAL IVP SCH (09:47)
[2018-11-12] MEDS ORDERED: POTASSIUM CHLORIDE INJ 40 MEQ in DEXT 5% WATER 250 ML IV SCH (10:00)
[2018-11-12 12:00] VITALS: BP 134/68
[2018-11-12 13:35] VITALS: BP 134/68
== END 2018-11-12 16:40 | disposition home or self-care (01) | DRG 391 ==
LOC: ER 12:13 → 6WST 17:24 → ENRESERV 19:41 → UNDODISIN 11-12 13:00
PROVIDERS: ADMIT Internal Medicine; ATTEND Internal Medicine
DX: K59.00 Constipation, unspecified (principal); I50.23 Acute on chronic systolic (congestive) heart failure; E44.1 Mild protein-calorie malnutrition; D64.9 Anemia, unspecified; D25.9 Leiomyoma of uterus, unspecified; N28.1 Cyst of kidney, acquired; K76.0 Fatty (change of) liver, not elsewhere classified; K57.30 Diverticulosis of large intestine without perforation or abscess without bleeding; I11.0 Hypertensive heart disease with heart failure; I25.10 Atherosclerotic heart disease of native coronary artery without angina pectoris; K21.9 Gastro-esophageal reflux disease without esophagitis; I27.29 Other secondary pulmonary hypertension; R91.8 Other nonspecific abnormal finding of lung field; I25.5 Ischemic cardiomyopathy; I08.3 Combined rheumatic disorders of mitral, aortic and tricuspid valves; F03.90 Unspecified dementia, unspecified severity, without behavioral disturbance, psychotic disturbance, mood disturbance, and anxiety; E87.8 Other disorders of electrolyte and fluid balance, not elsewhere classified; E11.9 Type 2 diabetes mellitus without complications; E66.01 Morbid (severe) obesity due to excess calories; E78.5 Hyperlipidemia, unspecified; Z95.1 Presence of aortocoronary bypass graft; Z95.5 Presence of coronary angioplasty implant and graft; Z90.49 Acquired absence of other specified parts of digestive tract; Z90.12 Acquired absence of left breast and nipple; Z85.3 Personal history of malignant neoplasm of breast; Z68.26 Body mass index [BMI] 26.0-26.9, adult; Z88.8 Allergy status to other drugs, medicaments and biological substances; Z79.899 Other long term (current) drug therapy; Z79.02 Long term (current) use of antithrombotics/antiplatelets; Z79.82 Long term (current) use of aspirin
CPT/HCPCS: 36415; 71045; 74176; 80048; 82270; 82962; 83880; 84484; 93005; 93306; 93970; 96361; 96365; 96375; 99291; J0696; J1650; J1940; J2270; J2405; J3480; J7030; J7050; J7060

== ENCOUNTER → 2018-11-28 | Outpatient (CLI) | payer MEDICARE, MEDICAID ==
[~2018-11-28] VITALS: Ht 165.1 cm; Wt 93.0 kg
== END | disposition home or self-care (01) ==
LOC: NM 08:57
PROVIDERS: ATTEND Internal Medicine Geriatric Medicine
DX: E11.43 Type 2 diabetes mellitus with diabetic autonomic (poly)neuropathy (principal); K31.84 Gastroparesis
CPT/HCPCS: 78265; A9541

== ENCOUNTER 2019-04-27 12:46 | Inpatient (IN) | payer MEDICARE, MEDICAID ==
[~2019-04-27] VITALS: Ht 162.6 cm; Wt 90.7 kg
[~2019-04-27 12:46] MED LIST changes: -CLOP75TA16 PO; +CLOP75TA4 PO; -GARL400T13 PO; +[UNRECOGNIZED DRUG - CODE] PO
[2019-04-27 16:43] LABS: CHLORIDE 106 mEq/L (98-107)
[2019-04-27 16:45] LABS: BASOPHILS % 0.2 % (0.0-2.0); EOSINOPHILS % 2.2 % (0.0-5.0); HEMATOCRIT. 35.5 % (36.0-48.0); HEMOGLOBIN. 11.3 g/dL (12.0-16.0); INR 1.3; LYMPHOCYTES % 20.1 % (20.0-50.0); MEAN CORPUSCULAR HEMOGLOBIN 26.6 pg (28.0-32.0); MEAN CORPUSCULAR VOLUME 83.4 fL (81.0-99.0); MONOCYTES % 11.1 % (2.0-8.0); NEUTROPHILS % 66.4 % (40.0-76.0); PLATELET 229 x1000/uL (130-400); PROTHROMBIN TIME 13.6 sec (9.6-11.0); RED BLOOD CELL COUNT 4.25 mill/uL (4.2-5.4); RED CELL DISTRIBUTION WIDTH 18.5 % (11.6-14.6)
[2019-04-27] MEDS ORDERED: ONDANSETRON HCL 4MG/2ML INJ IV PRN (17:00)
[2019-04-27] MEDS ORDERED: ACETAMINOPHEN 325MG TABLET PO PRN (17:00)
[2019-04-27] MEDS ORDERED: IPRATROPIUM/ALBUTEROL 0.5-3(2.5)MG/3ML NEB HHN PRN (17:00)
[2019-04-27] MEDS ORDERED: HYDROCODONE/ACETAMINOPHEN 5/325MG TABLET PO PRN (17:30)
[2019-04-27] MEDS ORDERED: PANTOPRAZOLE SODIUM 40 MG/VIAL IV ONE (17:30)
[2019-04-27 17:38] LABS: CLARITY URINE CLEAR (CLEAR); COLOR URINE YELLOW (YELLOW); KETONES URINE NEGATIVE (NEGATIVE); LEUKOCYTE ESTERASE URINE NEGATIVE (NEGATIVE); NITRITE URINE NEGATIVE (NEGATIVE); OCCULT BLOOD URINE NEGATIVE (NEGATIVE); PROTEIN URINE NEGATIVE (NEGATIVE); SPECIFIC GRAVITY URINE 1.007 (1.005-1.030); UROBILINOGEN URINE 0.2 E.U./dL (0.2-1.0)
[2019-04-27 17:52] LABS: TOTAL IRON BINDING CAPACITY 297 ug/dL (250-450)
[2019-04-27] MEDS ORDERED: POTASSIUM CHLORIDE 20MEQ TABLET SR PO NR (19:00)
[2019-04-27] MEDS ORDERED: IOHEXOL-300 100 ML BOTTLE ONE (20:23)
[2019-04-27] MEDS: PANTOPRAZOLE SODIUM 40 MG/VIAL IV SCH (21:29)
[2019-04-28] VITALS (7 sets, daily range): BP systolic 99–141; BP diastolic 50–69
[2019-04-28] MEDS: HYDROCODONE/ACETAMINOPHEN 10/325MG TABLET PO PRN ×2 (00:33→20:54)
[2019-04-28] MEDS: METRONIDAZOLE 500 MG PREMIX 100 ML IV SCH ×3 (00:36→20:42)
[2019-04-28] MEDS: LEVOFLOXACIN 500MG PREMIX 100 ML IV SCH (00:36)
[2019-04-28] MEDS ORDERED: DEXTROSE 50% WATER 50ML SYRINGE IV PRN (04:45)
[2019-04-28] MEDS: INSULIN LISPRO 100 UNITS/ML SUBCUT SCH ×4 (06:15→21:00)
[2019-04-28] MEDS: BLOOD SUGAR DIAGNOSTIC STRIP TEST SCH ×4 (06:15→20:29)
[2019-04-28 07:13] LABS: BASOPHILS % 0.2 % (0.0-2.0); EOSINOPHILS % 2.3 % (0.0-5.0); HEMATOCRIT. 33.8 % (36.0-48.0); HEMOGLOBIN. 10.7 g/dL (12.0-16.0); LYMPHOCYTES % 19.7 % (20.0-50.0); MEAN CORPUSCULAR HEMOGLOBIN 26.3 pg (28.0-32.0); MEAN CORPUSCULAR VOLUME 83.2 fL (81.0-99.0); MEAN PLATELET VOLUME 7.9 fl (7.4-10.4); MONOCYTES % 11.8 % (2.0-8.0); PLATELET 209 x1000/uL (130-400); RED BLOOD CELL COUNT 4.06 mill/uL (4.2-5.4); RED CELL DISTRIBUTION WIDTH 18.4 % (11.6-14.6)
[2019-04-28 08:20] LABS: CHLORIDE 108 mEq/L (98-107)
[2019-04-28] MEDS ORDERED: DOCUSATE SODIUM 100MG CAPSULE PO SCH (09:00)
[2019-04-28] MEDS ORDERED: DOCUSATE SODIUM 250MG CAPSULE PO SCH (09:00)
[2019-04-28] MEDS ORDERED: POTASSIUM CHLORIDE 20MEQ TABLET SR PO ONE (09:15)
[2019-04-28] MEDS ORDERED: POTASSIUM CHLORIDE 20MEQ TABLET SR PO SCH (09:30)
[2019-04-28] MEDS: CYANOCOBALAMIN 1000MCG TABLET PO SCH (09:53)
[2019-04-28] MEDS: RANOLAZINE 500 MG TAB.SR.12H PO SCH ×2 (09:54→17:16)
[2019-04-28] MEDS: ISOSORBIDE MONONITRATE 60MG TABLET SR 24HR PO SCH (09:54)
[2019-04-28] MEDS: LACTOBACILLUS GG CAPSULE PO SCH (09:54)
[2019-04-28] MEDS: GABAPENTIN 100MG CAPSULE PO SCH ×2 (09:54→17:10)
[2019-04-28] MEDS: CALCIUM CARBONATE 1250MG TABLET (500MG ELEMENTAL CALCIUM) PO SCH ×2 (09:54→17:10)
[2019-04-28] MEDS: POTASSIUM CHLORIDE 20MEQ TABLET SR PO SCH (09:54)
[2019-04-28] MEDS: AMLODIPINE 5MG TABLET PO SCH (09:55)
[2019-04-28] MEDS: FERROUS SULFATE 325MG TABLET PO SCH ×2 (09:59→17:10)
[2019-04-28] MEDS: ATORVASTATIN CALCIUM 40MG TABLET PO SCH (17:10)
[2019-04-28] MEDS: FAMOTIDINE 20MG/2ML VIAL IV SCH (20:42)
[2019-04-29 00:47] VITALS: BP 115/71
[2019-04-29] MEDS: LEVOFLOXACIN 500MG PREMIX 100 ML IV SCH ×2 (03:53→23:47)
[2019-04-29] MEDS: METRONIDAZOLE 500 MG PREMIX 100 ML IV SCH ×3 (03:55→17:34)
[2019-04-29 03:59] VITALS: BP 121/79
[2019-04-29] MEDS: HYDROCODONE/ACETAMINOPHEN 10/325MG TABLET PO PRN (05:31)
[2019-04-29] MEDS: BLOOD SUGAR DIAGNOSTIC STRIP TEST SCH ×4 (06:14→20:27)
[2019-04-29] MEDS: FERROUS SULFATE 325MG TABLET PO SCH ×3 (06:40→17:34)
[2019-04-29] MEDS: INSULIN LISPRO 100 UNITS/ML SUBCUT SCH ×4 (06:40→20:43)
[2019-04-29 06:54] LABS: BASOPHILS % 0.3 % (0.0-2.0); EOSINOPHILS % 3.7 % (0.0-5.0); HEMATOCRIT. 32.4 % (36.0-48.0); HEMOGLOBIN. 10.4 g/dL (12.0-16.0); LYMPHOCYTES % 23.6 % (20.0-50.0); MEAN CORPUSCULAR HEMOGLOBIN 26.5 pg (28.0-32.0); MEAN CORPUSCULAR VOLUME 82.5 fL (81.0-99.0); MEAN PLATELET VOLUME 7.7 fl (7.4-10.4); MONOCYTES % 12.3 % (2.0-8.0); NEUTROPHILS % 60.1 % (40.0-76.0); PLATELET 216 x1000/uL (130-400); RED BLOOD CELL COUNT 3.93 mill/uL (4.2-5.4); RED CELL DISTRIBUTION WIDTH 18.3 % (11.6-14.6)
[2019-04-29 08:18] LABS: CHLORIDE 109 mEq/L (98-107)
[2019-04-29] MEDS: AMLODIPINE 5MG TABLET PO SCH (08:44)
[2019-04-29] MEDS: ISOSORBIDE MONONITRATE 60MG TABLET SR 24HR PO SCH (09:00)
[2019-04-29] MEDS: PANTOPRAZOLE SODIUM 40 MG/VIAL IV SCH ×2 (09:00→09:28)
[2019-04-29] MEDS ORDERED: POTASSIUM CHLORIDE 20MEQ TABLET SR PO SCH (09:00)
[2019-04-29] MEDS: CALCIUM CARBONATE 1250MG TABLET (500MG ELEMENTAL CALCIUM) PO SCH ×2 (09:27→17:33)
[2019-04-29] MEDS: FAMOTIDINE 20MG/2ML VIAL IV SCH ×2 (09:27→20:26)
[2019-04-29] MEDS: GABAPENTIN 100MG CAPSULE PO SCH ×2 (09:27→17:34)
[2019-04-29] MEDS: POTASSIUM CHLORIDE 20MEQ TABLET SR PO SCH (09:27)
[2019-04-29] MEDS: CYANOCOBALAMIN 1000MCG TABLET PO SCH (09:27)
[2019-04-29] MEDS: LACTOBACILLUS GG CAPSULE PO SCH (09:27)
[2019-04-29] MEDS: RANOLAZINE 500 MG TAB.SR.12H PO SCH ×2 (09:27→17:34)
[2019-04-29 12:00] VITALS: BP 115/68
[2019-04-29 16:00] VITALS: BP_SYST 121; BP_SYST 131; BP_SYST 144; BP_DIAS 72; BP_DIAS 80; BP_DIAS 85
[2019-04-29] MEDS: PSYLLIUM SEED PACKET PO SCH (17:32)
[2019-04-29] MEDS: ATORVASTATIN CALCIUM 40MG TABLET PO SCH (17:34)
[2019-04-29 20:00] VITALS: BP 116/66
[2019-04-29] MEDS: ASCORBIC ACID 250 MG TABLET PO SCH (20:26)
[2019-04-30] VITALS: BP 121/75
[2019-04-30] MEDS: METRONIDAZOLE 500 MG PREMIX 100 ML IV SCH ×2 (01:07→10:13)
[2019-04-30 04:00] VITALS: BP 132/54
[2019-04-30] MEDS: INSULIN LISPRO 100 UNITS/ML SUBCUT SCH (06:27)
[2019-04-30] MEDS: BLOOD SUGAR DIAGNOSTIC STRIP TEST SCH (06:27)
[2019-04-30 07:03] LABS: BASOPHILS % 0.3 % (0.0-2.0); EOSINOPHILS % 2.8 % (0.0-5.0); HEMATOCRIT. 33.5 % (36.0-48.0); HEMOGLOBIN. 10.6 g/dL (12.0-16.0); LYMPHOCYTES % 20.4 % (20.0-50.0); MEAN CORPUSCULAR HEMOGLOBIN 26.3 pg (28.0-32.0); MEAN CORPUSCULAR VOLUME 83.2 fL (81.0-99.0); MONOCYTES % 12.9 % (2.0-8.0); NEUTROPHILS % 63.6 % (40.0-76.0); PLATELET 220 x1000/uL (130-400); RED BLOOD CELL COUNT 4.03 mill/uL (4.2-5.4); RED CELL DISTRIBUTION WIDTH 18.7 % (11.6-14.6)
[2019-04-30 07:15] LABS: CHLORIDE 107 mEq/L (98-107)
[2019-04-30 08:00] VITALS: BP 118/57
[2019-04-30] MEDS ORDERED: POTASSIUM CHLORIDE 20MEQ TABLET SR PO ONE (08:00)
[2019-04-30] MEDS ORDERED: METR500T MT (08:48)
[2019-04-30] MEDS: RANOLAZINE 500 MG TAB.SR.12H PO SCH (08:48)
[2019-04-30] MEDS: FERROUS SULFATE 325MG TABLET PO SCH (08:49)
[2019-04-30] MEDS: ISOSORBIDE MONONITRATE 60MG TABLET SR 24HR PO SCH (08:49)
[2019-04-30] MEDS: CYANOCOBALAMIN 1000MCG TABLET PO SCH (08:49)
[2019-04-30] MEDS: GABAPENTIN 100MG CAPSULE PO SCH (08:49)
[2019-04-30] MEDS: AMLODIPINE 5MG TABLET PO SCH (08:49)
[2019-04-30] MEDS: ASCORBIC ACID 250 MG TABLET PO SCH (08:50)
[2019-04-30] MEDS ORDERED: LEVO500T89 MT (08:50)
[2019-04-30] MEDS: PANTOPRAZOLE SODIUM 40 MG/VIAL IV SCH (08:50)
[2019-04-30] MEDS: PSYLLIUM SEED PACKET PO SCH (08:50)
[2019-04-30] MEDS: LACTOBACILLUS GG CAPSULE PO SCH (08:50)
[2019-04-30] MEDS: POTASSIUM CHLORIDE 20MEQ TABLET SR PO SCH (08:50)
[2019-04-30] MEDS: CALCIUM CARBONATE 1250MG TABLET (500MG ELEMENTAL CALCIUM) PO SCH (08:50)
[2019-04-30] MEDS: FAMOTIDINE 20MG/2ML VIAL IV SCH (08:51)
[2019-04-30] MEDS ORDERED: NA PHOS,M-B/NA PHOS,DI-BA ENEMA 118ML PR SCH (09:45)
[2019-04-30] MEDS ORDERED: SORBITOL 70% SOLN 30ML PO SCH (09:45)
[2019-04-30 10:36] VITALS: BP 118/57
[2019-04-30] MEDS ORDERED: LEVOFLOXACIN 500MG PREMIX 100 ML IV SCH (21:00)
[2019-05-01 05:08] LABS: A/G RATIO 0.8 (0.7-1.7); ALBUMIN 3.2 g/dL (2.9-4.4); ALPHA-1-GLOBULIN 0.4 g/dL (0.0-0.4); BETA GLOBULIN 1.4 g/dL (0.7-1.3); GAMMA GLOBULINS 1.4 g/dL (0.4-1.8); GLOBULIN TOTAL 4.2 g/dL (2.2-3.9); M-SPIKE Not Observed g/dL (Not Observed); TOTAL PROTEIN SERUM 7.4 g/dL (6.0-8.5)
[2019-05-02 04:07] LABS: OVA & PARASITE EXAM Final report (.)
== END 2019-04-30 11:40 | disposition home or self-care (01) | DRG 378 ==
LOC: ER 14:13 → 8WST 16:48 → ENRESERV 19:52
PROVIDERS: ADMIT Internal Medicine Geriatric Medicine; ATTEND Internal Medicine Geriatric Medicine
DX: K57.33 Diverticulitis of large intestine without perforation or abscess with bleeding (principal); E46 Unspecified protein-calorie malnutrition; I50.22 Chronic systolic (congestive) heart failure; E87.6 Hypokalemia; D35.02 Benign neoplasm of left adrenal gland; I25.10 Atherosclerotic heart disease of native coronary artery without angina pectoris; I25.5 Ischemic cardiomyopathy; K76.0 Fatty (change of) liver, not elsewhere classified; R16.0 Hepatomegaly, not elsewhere classified; K86.89 Other specified diseases of pancreas; K59.09 Other constipation; M19.90 Unspecified osteoarthritis, unspecified site; R00.1 Bradycardia, unspecified; E11.69 Type 2 diabetes mellitus with other specified complication; G89.29 Other chronic pain; I11.0 Hypertensive heart disease with heart failure; E78.5 Hyperlipidemia, unspecified; D63.8 Anemia in other chronic diseases classified elsewhere; Z98.41 Cataract extraction status, right eye; Z90.12 Acquired absence of left breast and nipple; Z90.49 Acquired absence of other specified parts of digestive tract; Z85.3 Personal history of malignant neoplasm of breast; Z95.1 Presence of aortocoronary bypass graft; Z68.34 Body mass index [BMI] 34.0-34.9, adult; Z88.8 Allergy status to other drugs, medicaments and biological substances; Z98.42 Cataract extraction status, left eye; Z79.899 Other long term (current) drug therapy; Z79.02 Long term (current) use of antithrombotics/antiplatelets; Z79.82 Long term (current) use of aspirin
CPT/HCPCS: 36415; 74177; 80048; 81003; 82270; 82962; 83036; 83540; 83550; 83735; 84155; 84165; 87015; 87045; 87177; 87209; 87427; 87449; 87493; 89055; 93970; 96374; 97162; 99285; C9113; J1956; J3490; J7040; Q9967